=== PATIENT | male | born 1955 | race Caucasian/White ===

== ENCOUNTER → 2021-07-30 | Outpatient (CLI) | payer MEDICARE, OTHER | LOC: KOH-I 10:50 | DX: N20.0 Calculus of kidney (principal); K74.60 Unspecified cirrhosis of liver; N40.0 Benign prostatic hyperplasia without lower urinary tract symptoms | CPT/HCPCS: 74176 ==

== ENCOUNTER → 2021-08-20 | Outpatient (CLI) | payer MEDICARE, OTHER | LOC: KOH-I 15:34 | DX: M54.2 Cervicalgia (principal); M25.512 Pain in left shoulder; M25.522 Pain in left elbow; M47.812 Spondylosis without myelopathy or radiculopathy, cervical region; M19.012 Primary osteoarthritis, left shoulder; M19.022 Primary osteoarthritis, left elbow | CPT/HCPCS: 72040; 73030; 73080 ==